=== PATIENT | female | born 1945 | race Caucasian/White ===

== ENCOUNTER 2016-09-19 07:41 | Day surgery (SDC) | payer MEDICARE, OTHER ==
[~2016-09-19] VITALS: Ht 170.2 cm; Wt 57.0 kg
[~2016-09-19 07:41] MED LIST: ASPI325T32 PO; CALC600T12 PO; LEVO50TA6 PO; MAGN400C PO; MULT-1073 PO; PARO20TA5 PO; SIMV20TA4 PO; Sodium Chloride LOK Flush 10 mL Syringe IV PRN; fentaNYL-PF 50 mCg/mL 2 mL Inj IVPUSH PRN
[2016-09-19 08:00] VITALS: BP 137/68; PULSE 78; RESP 16; O2SAT 99
[2016-09-19] MEDS: 0.9% Sodium Chloride 1,000 ML IV PRN ×2 (08:46→09:04)
[2016-09-19 09:15] VITALS: BP 133/58; PULSE 74; RESP 16; O2SAT 99
[2016-09-19 09:25] VITALS: BP 120/57; PULSE 73; RESP 16; O2SAT 95
[2016-09-19 09:35] VITALS: BP 123/53; PULSE 71; RESP 16; O2SAT 97
--- NOTE | 2016-09-19 09:47 | ENDO ---
[address] [address] ENDOSCOPY PROCEDURE PATIENT: YOVANNY ZAPATA : 1945 MR#: [id number] ADMIT: 09/19/2016 JOB ID: [id number] PRIMARY PROVIDER: Yogesh Liu MD PROCEDURE: Colonoscopy. INDICATIONS: A 71-year-old female with a family history of colon cancer, and a personal history of unknown histology colon polyps. EQUIPMENT: [employer]-H180-AL. SEDATION: 4 mg Versed and 100 mcg fentanyl. COMPLICATIONS: None identified. BOWEL PREPARATION: Fair at best. There are a couple of areas with solid stool debris that simply could not be fully cleansed. Attempts at doing so, caused the scope to become clogged with debris. PROCEDURE INFORMATION: After the risks and benefits were explained, written and verbal informed consent was obtained. The patient was brought into the endoscopy suite and placed into the left lateral decubitus position. Sedation was achieved as above. A digital rectal examination was accomplished. No significant pathology appreciated. The scope was introduced into the rectum and advanced under direct visualization to the level of the cecum, as identified by the appendiceal orifice and ileocecal valve. The scope was slowly withdrawn to carefully examine the mucosa for any defects or lesions. Multiple direct views were made through the dentate line for exclusion of pathology. The colon was decompressed, the scope removed from the patient who tolerated the procedure well. FINDINGS: Within the limitations of bowel prep, no significant polyps, mass lesions, or inflammatory features identified throughout. Mild internal hemorrhoids were noted. ENDOSCOPIC DIAGNOSES: 1. Hemorrhoids. 2. Otherwise visually unremarkable colonoscopy to cecum. RECOMMENDATIONS: Considering prep and family history, repeat colonoscopy in five years.
== END 2016-09-19 23:59 | disposition home or self-care (01) ==
LOC: END 07:41
PROVIDERS: ATTEND Internal Medicine Gastroenterology
DX: Z12.11 Encounter for screening for malignant neoplasm of colon (principal); K64.8 Other hemorrhoids; Z86.010 Personal history of colon polyps; Z80.0 Family history of malignant neoplasm of digestive organs; E03.9 Hypothyroidism, unspecified; E78.5 Hyperlipidemia, unspecified; F41.9 Anxiety disorder, unspecified; Z79.82 Long term (current) use of aspirin
CPT/HCPCS: G0105; J2250; J7030

== ENCOUNTER 2017-02-04 18:29 | Emergency (ER) | payer MEDICARE, OTHER ==
[~2017-02-04] VITALS: Ht 170.2 cm; Wt 60.0 kg
[~2017-02-04 18:29] MED LIST changes: -Sodium Chloride LOK Flush 10 mL Syringe IV PRN; -fentaNYL-PF 50 mCg/mL 2 mL Inj IVPUSH PRN
[2017-02-04 18:34] VITALS: BP 122/67; PULSE 79; RESP 18; O2SAT 99
--- NOTE | 2017-02-04 19:33 | ED.REPORT ---
HPI-General Illness Date of Service February 04, 2017 ED Provider: Rayo Willams DO Pt is a relatively healthy 71 y/o female presenting to the ED c/o generalized weakness onset 4 days ago. She c/o associated MERA, sore throat, diffuse frontal sinus pressure, nausea, chills. Pt denies cough, fever, vomiting, diarrhea, earache, cough, SOB, neck pain. She has no history of sinus problems. She has no allergies. Nursing Notes Stated Complaint: HEAD PAIN, WEAKNESS Chief Complaint: FLU/Cold Symptoms Nursing Notes Reviewed: Yes Allergies: Coded Allergies: No Known Drug Allergies (Verified Allergy, Unknown, 09/16/16) Scheduled Amoxicillin (Amoxicillin) 500 Mg Capsule 500 MG PO TID Aspirin (Aspirin) 325 Mg Tablet 325 MG PO DAILY Calcium Carbonate (Calcium) 600 Mg Tablet 1,500 MG PO DAILY Levothyroxine (Levothyroxine) 50 Mcg Tablet 50 MCG PO DAILY Magnesium Oxide (Magnesium) 400 Mg Capsule 400 MG PO DAILY Multivits-Min/FA/Lycopene/Lut (Centrum Silver Tablet) 1 Each Tablet 1 EACH PO DAILY Paroxetine (Paroxetine) 20 Mg Tablet 20 MG PO HS Simvastatin (Simvastatin) 20 Mg Tablet 20 MG PO HS Scheduled PRN Ondansetron ODT (Zofran ODT) 4 Mg Tablet 4 MG PO Q4H PRN PRN For Nausea General Time Seen by MD: 18:58 Chief Complaint Weakness Hx Obtained From: Patient Arrived By: Walk-in Sudden in Onset?: No Onset Occurred: 4 days ago Symptom Duration: Since onset Location: : Face Quality: Pressure Radiation: : Does not radiate Severity: Current: Moderate Severity: Maximum: Moderate Similar Sx Previous: No Past Medical History Past Medical History Anxiety Hyperlipidemia Depression Irritable bowel Past Surgical History Thyroid Smoking History Never Smoker Social History Alcohol Use: Denies alcohol use Ambulatory Status Independent Review of Systems +sinus pressure Full Review of Systems Constitutional: Reports: Chills, Weakness - generalized, Denies: Fever Ears / Nose / Throat: Reports: Nasal congestion, Sinus problem, Denies: Earache bilateral Respiratory: Denies: Non-productive cough, Shortness of breath Cardiovascular: Denies: Chest pain, Dyspnea on exertion GI: Reports: Nausea, Denies: Abdominal pain, Diarrhea, Vomiting Complete sys rev & neg: except as marked. Physical Exam Vital Signs Vital Signs Date Time Temp Pulse Resp B/P Pulse Ox O2 Delivery O2 Flow Rate FiO2 02/04/17 21:38 37.9 64 17 109/52 97 Room Air 02/04/17 18:34 37.1 79 18 122/67 99 Room Air Initial VS: Reviewed, Vital signs normal Head / Eyes: Atraumatic, Normocephalic, PERRL Respiratory: Breath sounds normal, Clear to auscultation, No respiratory distress Cardiovascular: Regular rate & rhythm, Heart sounds normal, Intact distal pulses Abdomen / GI: Soft, Non-tender Extremities: Vascular intact, Neuro intact, No swelling, No tenderness Skin: Warm, Dry, No cyanosis Neurologic: Alert, Oriented, Nonfocal Psychiatric: Mood/affect normal, Behavior normal, Normal thought content General/Constitutional: Awake, Alert, No acute distress, Cooperative, Not toxic appearing Appearance / Presentation: Positive: Ill appearing/not toxic ENT: Atraumatic, Airway patent, Mucous membranes moist, Pharynx NL, No peritonsillar abscess, No pooling of secretions, No trismus, Tympanic membs NL, Ext aud canal NL Bilateral maxillary sinus tenderness to palpation Neck: Atraumatic, Supple, No meningismus, Full range of motion, No adenopathy Re-Eval/Medical Decision Med Decision/Clinical Course 71-year-old female presenting with 4 days of facial and sinus pain. Her vital signs are normal, however patient requested that she be given IV and all the medicines we could possibly give her because she felt so horrible. There were no abnormalities on exam except for tenderness over bilateral maxillary sinuses. She was treated with Zofran for her nausea, Toradol 15 mg IM for her pain, and amoxicillin for her sinusitis. At discharge she had a temp of 37.9, but was feeling much better. She was discharged with a prescription of Zofran and amoxicillin with instructions to follow-up with her PCP. Time of Eval: 21:17 Patient Status: Condition improved, Moderate relief Re-Evaluation/Progress Note: Pt rechecked. Much better after medications. Wanting to go home. Informed pt of plan for treatment. Pt understands and agrees with plan for treatment. F/U instructions and RTER warnings given. All questions addressed. Counseled Regarding: Diagnosis, Need for follow-up, When/why to return to ED Discharge & Departure Primary Impression: Sinusitis Sinusitis location: maxillary Chronicity: acute Recurrence: not specified as recurrent Qualified Code: J01.00 - Acute maxillary sinusitis, unspecified Disposition: Home Discharge Condition All VS Reviewed: Yes Condition: Stable Patient Instructions: Sinusitis (ED) Additional Instructions: Your examination is consistent with sinusitis. Take the full course of antibiotics as directed. Take Zofran as needed for nausea and vomiting. Take Ibuprofen or Tylenol as directed for discomfort. Return to the emergency department if you develop high fever, persistent vomiting, severe pain or discomfort, profound weakness or lightheadedness, trouble breathing, or for other concerning symptoms. Follow-up with your primary care doctor early next week if symptoms do not resolve. Referrals: Yogesh Liu MD (PCP) Scribe Attestation Portions of this note were transcribed by Rene Rojo. I, Dr. Moreland personally performed the history, physical exam and medical decision-making; I reviewed and confirmed the accuracy of the information in the transcribed note. Signed by Star Miles, 02/04/171999 copies to: Yogesh Liu MD, Gary R DO February 04, 2017 19:33 RENE ROJO February 04, 2017 19:48
[2017-02-04] MEDS ORDERED: Ketorolac 15 mg/mL Inj IM ONE (19:40)
[2017-02-04] MEDS ORDERED: Ondansetron 8 mg ODT Tablet PO ONE (19:40)
[2017-02-04 21:38] VITALS: BP 109/52; PULSE 64; RESP 17; O2SAT 97
[2017-02-04] MEDS ORDERED: ONDA4TAB9 PO (21:38)
[2017-02-04] MEDS ORDERED: AMOX500C2 PO (21:38)
== END 2017-02-04 21:43 | disposition home or self-care (01) ==
LOC: SED 18:29
DX: J01.00 Acute maxillary sinusitis, unspecified (principal); E78.5 Hyperlipidemia, unspecified; R11.0 Nausea; Z87.19 Personal history of other diseases of the digestive system; Z79.82 Long term (current) use of aspirin
CPT/HCPCS: 96372; 99284; J1885